=== PATIENT | male | born 1985 | race Two or more races ===

== ENCOUNTER 2018-12-26 09:04 | Emergency (ER) | payer MEDICAID ==
[2018-12-26] MEDS ORDERED: KETOROLAC 30 MG/ML VIAL IVP ONE (09:18)
--- NOTE | 2018-12-26 09:25 | Emergency Department Record ---
History of Present Illness - General Chief Complaint: Abdominal Pain Stated Complaint: ABD PAIN Time Seen by Provider: 12/26/18 09:18 Source: Patient Mode of Arrival: Ambulatory Limitations: No limitations - History of Present Illness Initial Comments: Pt with right flank pain onset 2 days ago. It comes and goes. Pt will be painfree and have sudden sharp right flank pains. + nausea, no vomiting. No chnage with diet. No radiation. No blood noted in urine. No hx of similar. No fever. Pain is sharp and when intense pt has nausea nd is pacing around the home to try to find a comfortable position. MD Complaint: Flank pain Onset/Timin -: Days(s) Location: RUQ Radiation: None Severity: Moderate Severity scale (1-10): 7 Quality: Burning, Sharp, Other Consistency: Constant Improves With: Nothing Worsens With: Nothing Associated Symptoms: Denies other symptoms - Related Data Previous Rx's Medication Instructions Recorded Ibuprofen [Motrin 600Mg] 600 mg PO Q6H 10 Days #40 tablet 12/26/18 Allergies Allergy/AdvReac Type Severity Reaction Status Date / Time No Known Drug Allergies Allergy Verified 08/11/16 11:20 Travel Screening - Travel/Exposure Within Last 30 Days Have you traveled within the last 30 days?: No Review of Systems Constitutional: Denies: Chills, Fever, Weakness Eyes: Denies: Eye discharge, Photophobia ENT: Denies: Congestion, Ear pain Respiratory: Denies: Cough, Dyspnea Cardiovascular: Denies: Arrhythmia, Chest pain Endocrine: Denies: Fatigue, Polydipsia, Polyuria Gastrointestinal: Reports: As per HPI, Nausea. Denies: Diarrhea, Hematemesis, Vomiting Genitourinary: Denies: Discharge, Dysuria, Frequency, Hematuria Musculoskeletal: Reports: Back pain. Denies: Arthralgia Skin: Denies: Bruising, Rash Neurological: Denies: Abnormal gait Psychiatric: Denies: Anxiety Hematological/Lymphatic: Denies: Anemia Past Medical History - SOCIAL HISTORY Smoking Status: Light tobacco smoker (<10/day) Alcohol Use: Occasional Drug Use: None - RESPIRATORY Hx Respiratory Disorders: Yes Hx Asthma: Yes - CARDIOVASCULAR Hx Cardio Disorders: No - NEURO Hx Neuro Disorders: No - GI Hx GI Disorders: No - Hx Genitourinary Disorders: No - ENDOCRINE Hx Endocrine Disorders: No - MUSCULOSKELETAL Hx Musculoskeletal Disorders: No - PSYCH Hx Psych Problems: No - HEMATOLOGY/ONCOLOGY Hx Hematology/Oncology Disorders: No Family Medical History Any Significant Family History?: No Physical Exam - General General Appearance: Alert, Oriented x3, Cooperative, Mild distress - Head Head exam: Normal inspection Head exam detail: negative: Abrasion - Eye Eye exam: Normal appearance, PERRL - ENT ENT exam: Normal exam, Mucous membranes moist, Normal external ear exam, Normal orophraynx, TM's normal bilaterally - Neck Neck exam: Normal inspection, Full ROM. negative: Tenderness - Respiratory Respiratory exam: Normal lung sounds bilaterally. negative: Respiratory distress - Cardiovascular Cardiovascular Exam: Regular rate, Normal rhythm, Normal heart sounds - GI/Abdominal GI/Abdominal exam: Soft, Normal bowel sounds, Tenderness (right flank). negative: Distended, Guarding, Rebound - Extremities Extremities exam: Normal inspection, Full ROM. negative: Tenderness - Back Back exam: Reports: CVA tenderness (R) - Neurological Neurological exam: Alert, Normal gait, Oriented X3 - Psychiatric Psychiatric exam: Normal affect - Skin Skin exam: Normal color. negative: Rash Course Vital Signs 12/26/18 09:06 Temperature 97.6 F Pulse Rate 60 Respiratory 16 Rate Blood Pressure 163/117 Pulse Ox 100 - Reevaluation(s) Reevaluation #1: 12/26/18 11:19 Pt with sludge on US of GB. Bili slightly elevated. Discussed with Dr. Willis and he will see in office. Appointment scheduled. Will follow a low fat diet, motrin for pain, return to ED if any issues. Medical Decision Making - Lab Data Result diagrams: 12/26/18 09:05 12/26/18 09:05 Disposition Disposition: Discharge Clinical Impression: Abdominal pain, Biliary dyskinesia, Hyperbilirubinemia Disposition: Home, Self-Care Condition: (2) Stable Instructions: Abdominal Pain (ED), Biliary Colic (ED) Additional Instructions: LOW FAT diet Motrin for pain See Dr. Willis as scheduled Return to the ED as needed. Prescriptions: Ibuprofen [Motrin 600Mg] 600 mg PO Q6H 10 Days #40 tablet Forms: Patient Portal Access Time of Disposition: 11:19 Quality - Quality Measures Quality Measures: N/A - Blood Pressure Screening Does Patient Have Any of the Following: No Blood Pressure Classification: Hypertensive Reading Systolic Measurement: 163 Diastolic Measurement: 117 Screening for High Blood Pressure: < Pre-Hypertensive BP, F/U Documented > [ [id number]] Pre-Hypertensive Follow-up Interventions: Follow-up with rescreen every year.
[2018-12-26 09:27] LABS: URINE APPEARANCE CLEAR; URINE BILIRUBIN NEGATIVE (NEGATIVE); URINE BLOOD TRACE-I (NEGATIVE); URINE COLOR YELLOW; URINE GLUCOSE (UA) NEGATIVE (NEGATIVE); URINE KETONE NEGATIVE (NEGATIVE); URINE LEUKOCYTE ESTERASE NEGATIVE (NEGATIVE); URINE NITRITE NEGATIVE (NEGATIVE); URINE PROTEIN NEGATIVE (NEGATIVE); URINE UROBILINOGEN 0.2 E.U./dL (0.20 - 1.00)
[2018-12-26 09:35] LABS: URINE EPITHELIAL CELLS NONE SEEN (FEW); URINE MUCUS HEAVY; URINE RBC 0 - 2 (NONE SEEN); URINE WBC NONE SEEN (0-2/hpf)
[2018-12-26 10:10] LABS: BASO % 0.4 % (0-6); EOS % 5.1 % (0-6); GRAN % 45.6 % (47-80); HEMATOCRIT 47.6 % (42.0-52.0); HEMOGLOBIN 16.3 gm/dl (14.0-18.0); LYMPH % 39.3 % (16-45); MEAN CELL VOLUME 89.5 fl (81-97); MEAN CORPUSCULAR HEMOGLOBIN 30.6 pg (27-33); MEAN CORPUSCULAR HGB CONC 34.2 g/dl (32-36); MONO % 9.6 % (0-9); PLATELET COUNT 250 K/uL (130-400); RED BLOOD COUNT 5.32 M/uL (4.40-5.70); RED CELL DISTRIBUTION WIDTH 12.7 % (11.5-14.5); WHITE BLOOD COUNT W/O DIFF 7.7 K/uL (4.2-12.2)
[2018-12-26 10:23] LABS: BLOOD UREA NITROGEN 8 mg/dL (6-20); EST GLOMERULAR FILTRATION RATE > 60 mL/min
[2018-12-26 10:24] LABS: TOTAL PROTEIN 7.9 g/dL (6.6-8.7)
[2018-12-26 10:26] LABS: GLUCOSE,RANDOM 99 mg/dL (74-109)
[2018-12-26 10:29] LABS: ALB/GLOB RATIO 1.6 (1.1-1.8); ALBUMIN 4.9 g/dL (4.0-5.0); ALKALINE PHOSPHATASE 104 U/L (40-129); ALT/SGPT 20 U/L (<41); AST/SGOT 20 U/L (10.0-50.0)
--- NOTE | 2018-12-27 09:52 | CT SCAN REPORT ---
EXAM: NONCONTRAST CT OF THE ABDOMEN AND PELVIS HISTORY: HEMATURIA AND RIGHT FLANK PAIN FOR ONE WEEK. TECHNIQUE: Noncontrast CT of the abdomen and pelvis was obtained. Comparison: None. FINDINGS: The lung bases are clear. Unremarkable noncontrast CT appearance of the liver, gallbladder, adrenal glands , pancreas, and spleen. No hydronephrosis. No calculi detected within the kidneys or ureters. No focal colonic thickening or inflammatory change. Normal appendix. The stomach and small bowel are nondilated. No free air or free fluid. The urinary bladder is nondistended, no appreciable abnormality. The abdominal aorta is nondilated. No acute osseous findings. IMPRESSION: 1. NO ACUTE ABDOMINAL OR PELVIC FINDINGS. 2. NO EVIDENCE OF UROLITHIASIS OR OBSTRUCTIVE UROPATHY. JOB NUMBER: [id number] MTDD
--- NOTE | 2018-12-27 10:47 | ULTRASOUND REPORT ---
EXAM: COMPLETE ABDOMEN ULTRASOUND HISTORY: RIGHT UPPER QUADRANT ABDOMINAL PAIN. TECHNIQUE: Complete abdomen ultrasound was obtained. Comparison: CT of the abdomen and pelvis 12/26/18. FINDINGS: Limited visualization of the pancreas due to shadowing bowel gas. The visualized abdominal aorta appears unremarkable. The visualized hepatic parenchyma appears within normal limits. No shadowing gallstones. Questionable minimal gallbladder sludge. No gallbladder wall thickening or pericholecystic fluid. The common bile duct measures up to 3 mm in diameter, within normal limits. The right renal length is 9.8 cm. No hydronephrosis. No shadowing calculus or focal mass demonstrated. The left renal length is 11.2 cm. No hydronephrosis. No shadowing calculus or focal mass demonstrated. Unremarkable appearance of the spleen. The visualized portion of the inferior vena cava at the level of the liver appears unremarkable. No visible ascites. IMPRESSION: QUESTIONABLE MINIMAL GALLBLADDER SLUDGE. NO GALLSTONES OR SONOGRAPHIC EVIDENCE OF ACUTE CHOLECYSTITIS. JOB NUMBER: [id number] MTDD
== END 2018-12-26 11:46 | disposition home or self-care (01) ==
LOC: ER 09:04
DX: K82.8 Other specified diseases of gallbladder (principal); R10.11 Right upper quadrant pain; E80.6 Other disorders of bilirubin metabolism; F17.210 Nicotine dependence, cigarettes, uncomplicated
CPT/HCPCS: 99284 ×2; 96374; 85025; 80053; 81001; 76700; 74176; J1885

== ENCOUNTER 2019-01-09 07:19 | Day surgery (SDC) | payer MEDICAID ==
[~2019-01-09 07:19] MED LIST: ACETAMINOPHEN 1,000 MG/100 ML BTL IV ONE; FAMOTIDINE 20MG TABLET PO ONE; MECLIZINE 25 MG TABLET PO ONE; METOCLOPRAMIDE 10 MG TABLET PO ONE
[2019-01-09] MEDS ORDERED: FENTANYL PF 100MCG/2ML VIAL IV ONE (07:20)
[2019-01-09] MEDS ORDERED: SUCCINYLCHOLINE 20 MG/ML 10ML IVP ONE (07:20)
[2019-01-09] MEDS ORDERED: BUPIVACAINE 0.25% W/EPI MPF 30ML VIAL IVP ONE (07:20)
[2019-01-09] MEDS ORDERED: ONDANSETRON HCL IV 4 MG/2 ML VIAL IVP ONE (07:20)
[2019-01-09] MEDS ORDERED: SEVOFLURANE 250 ML INH ONE (07:20)
[2019-01-09] MEDS ORDERED: MEPERIDINE PCA 10 MG/ML VIAL IV ONE (07:20)
[2019-01-09] MEDS ORDERED: LABETALOL HCL 5MG/ML, 20ML VIAL IV ONE (07:20)
[2019-01-09] MEDS ORDERED: ROCURONIUM BROMIDE 50MG/5ML VIAL IV ONE (07:20)
[2019-01-09] MEDS ORDERED: MIDAZOLAM HCL 2MG/2ML VIAL IV ONE (07:20)
[2019-01-09] MEDS ORDERED: HYDROCODONE/APAP 5/325MG TABLET PO ONE (07:20)
[2019-01-09] MEDS ORDERED: LIDOCAINE 2% MDV (20MG/ML) 20ML VIAL IV ONE (07:20)
[2019-01-09] MEDS ORDERED: PROPOFOL 10 MG/ML VIAL IV ONE (07:20)
[2019-01-09] MEDS ORDERED: KETOROLAC 30 MG/ML VIAL IVP ONE (07:20)
[2019-01-09] MEDS ORDERED: BUPIVACAINE 0.25% W/EPI MPF 30ML VIAL SQ ONE ×2 (09:32)
--- NOTE | 2019-01-12 13:40 | Operative Note ---
DATE OF SURGERY: 01/09/2019 Surgeon: Orville Willis D.O. Referring physician: Unknown. PREOPERATIVE DIAGNOSIS: Chronic cholecystitis. POSTOPERATIVE DIAGNOSIS: Chronic cholecystitis. OPERATION: Laparoscopic cholecystectomy. Anesthesia: General. Indication: The patient is a 33-year-old male who has been experiencing ongoing right subcostal post prandial pain. Workup did include ultrasound HIDA scan. HIDA scan did show an impaired ejection fraction with extreme increased pain with Kinevac injection. We did discuss cholecystectomy versus medical management. He desired surgical intervention. The risks include, but are not limited to: Bleeding, infection, ductal injury, possible conversion to open, postoperative bile leak and he understood this fully. Consent was signed, questions were answered. PROCEDURE: He was taken to the operating room and placed in the supine position. General anesthesia was administered per the Department of Anesthesia. The patient's abdomen was prepped and draped in the usual sterile fashion. The supraumbilical region was anesthetized with a total of 5 mL of 0.25% Sensorcaine with epinephrine. A 2 cm infraumbilical incision was made, this was carried down to the anterior rectus fascia. This was incised. A Elia clamp was placed in the fascial edges and brought up through the wound. Stay sutures of 0 Vicryl placed. The posterior rectus sheath was identified and incised, the peritoneal cavity was entered bluntly. At this time, a 10 mm blunt Miles port was placed and adequate pneumoperitoneum was established. Under direct visualization, additional 5 mm epigastric and two 5 mm right subcostal ports are placed. The gallbladder was identified. It was densely covered with omentum. The fundus of the gallbladder was identified. This was lifted anteriorly. The omentum was swept down, exposing Somers's pouch. The gallbladder was then further retracted in a cephalad and lateral direction, opening the angle of Calot. The hepatocystic triangle was thoroughly dissected out. There was no aberrant anatomy, no posterior ductal structures. The cystic duct and the cystic artery are clearly identified. The distal half of the gallbladder was released and the cystic plate as well. We had an excellent Critical View of Safety. At this time, each one was doubly clipped and cut in a standard fashion. The gallbladder was taken off the liver bed with the Joseph harmonic. This was placed in the EndoCatch bag and brought out through the umbilical port. The right upper quadrant was rechecked, found to be hemostatic, no bleeding, no bile leak, and no bowel injury noted. The patient was leveled out and the pneumoperitoneum was released, all ports removed. The fascia closed with 0 Vicryl in a figure-of-8 fashion. The skin and all 4 ports were closed with 4-0 Vicryl. He was taken to the recovery room in satisfactory condition. FINDINGS AT THE TIME OF SURGERY: Chronic cholecystitis. MTDD
== END 2019-01-09 10:42 | disposition home or self-care (01) ==
LOC: SUR 07:19
PROVIDERS: ATTEND Surgery
DX: K81.1 Chronic cholecystitis (principal); J45.909 Unspecified asthma, uncomplicated
CPT/HCPCS: 47562; 00790; J1885; J2405; J3010; J0330; J2175